=== PATIENT | female | born 1960 | race Two or more races ===

== ENCOUNTER 2016-09-08 07:15 | Inpatient (IN) | payer MEDICARE, MEDICAID ==
[2016-10-16 13:14] LABS: HEMATOCRIT 41.5 % (36.0-47.0); HEMOGLOBIN 13.1 g/dL (12.0-15.5); HGB HCT DIFFERENCE -2.2; MEAN CORPUSCULAR HEMOGLOBIN 25.7 pg (27.0-33.4); MEAN CORPUSCULAR HGB CONC 31.6 g/dL (32.0-36.0); MEAN CORPUSCULAR VOLUME 81 fl (80-97); RED BLOOD COUNT 5.11 10^6/uL (3.72-5.28); RED CELL DISTRIBUTION WIDTH 13.9 % (11.5-14.0); WHITE BLOOD COUNT 4.5 10^3/uL (4.0-10.5)
[2016-10-16 13:21] LABS: APPEARANCE,URINE CLEAR; BILIRUBIN,URINE NEGATIVE (NEGATIVE); GLUCOSE, URINE NEGATIVE (NEGATIVE); KETONES,URINE NEGATIVE (NEGATIVE); LEUKOCYTE ESTERASE,URINE NEGATIVE (NEGATIVE); NITRITE,URINE NEGATIVE (NEGATIVE); PROTEIN,URINE NEGATIVE (NEGATIVE); URINE SPECIFIC GRAVITY 1.008; UROBILINOGEN,URINE NEGATIVE mg/dL (<2.0)
[2016-10-16 13:43] LABS: ANION GAP 12 (5-19); BLOOD UREA NITROGEN 10 mg/dL (7-20); CALCIUM 9.6 mg/dL (8.4-10.2); CARBON DIOXIDE 30 mmol/L (22-30); CHLORIDE 102 mmol/L (98-107); CREATININE RESULT 0.62 mg/dL (0.52-1.25); GLUCOSE 76 mg/dL (75-110); POTASSIUM 3.9 mmol/L (3.6-5.0)
--- NOTE | 2016-10-16 18:02 | EKG REPORT ---
SEVERITY:- ABNORMAL ECG - SINUS RHYTHM CONSIDER LEFT VENTRICULAR HYPERTROPHY : Confirmed by: Tenzin Carbajal MD 16-Oct-2016 18:01:07
[2016-10-18] MEDS ORDERED: CEFAZOLIN SODIUM 1 GM in DEXTROSE 5%-WATER 50 ML IV PRN (05:00)
[2016-10-18] MEDS ORDERED: LIDOCAINE 0.5% INJ-PF (5 MG/ML) 50 ML SDV SUBCUT PRN (05:00)
[2016-10-18] MEDS ORDERED: LACTATED RINGERS 1000 ML IV PRN (05:00)
[2016-10-18] MEDS ORDERED: BUPIVACAINE INJ/PF LIPOSOME/PF 266 MG/20 ML SDV ONE (06:48)
[2016-10-18] MEDS ORDERED: FENTANYL CITRATE INJ/PF 250 MCG/5 ML AMPULE ONE (07:08)
[2016-10-18] MEDS ORDERED: MIDAZOLAM 2 MG/2 ML INJ ONE (07:08)
[2016-10-18] MEDS ORDERED: HYDROMORPHONE HCL INJ/PF 2 MG/ML AMPULE ONE (07:08)
[2016-10-18] MEDS ORDERED: ONDANSETRON HCL INJ/PF 4 MG/2 ML SDV ONE ×2 (07:09→14:57)
[2016-10-18] MEDS ORDERED: PROPOFOL INJ 200 MG/20 ML VIAL IV ONE (07:09)
[2016-10-18] MEDS ORDERED: DEXAMETHASONE SOD PHOSPHATE INJ 4 MG/1 ML VIAL ONE (07:09)
[2016-10-18] MEDS ORDERED: FAMOTIDINE INJ/PF 20 MG/2 ML SDV IV ONE (07:18)
[2016-10-18] MEDS ORDERED: SCOPOLAMINE HYDROBROMIDE 1.5 MG PATCH.TD72 ONE (07:18)
[2016-10-18] MEDS ORDERED: DIPHENHYDRAMINE HCL 50 MG/ML VIAL IV PRN (07:52)
[2016-10-18] MEDS ORDERED: PROMETHAZINE HCL INJ 25 MG/1 ML VIAL IV PRN (07:52)
[2016-10-18] MEDS ORDERED: MEPERIDINE HCL/PF INJ 25 MG/1 ML DISP.SYRIN IV PRN (07:52)
[2016-10-18] MEDS ORDERED: FENTANYL CITRATE INJ/PF 100 MCG/2 ML AMPUL IV PRN ×3 (07:52)
[2016-10-18] MEDS ORDERED: OXYCODONE-ACETAMINOPHEN 5-325 MG TABLET PO PRN (09:01)
[2016-10-18] MEDS ORDERED: MORPHINE SULFATE 10 MG/ML INJ IM PRN (09:02)
[2016-10-18] MEDS ORDERED: MORPHINE SULFATE 10 MG/ML INJ INJ PRN ×2 (09:02)
[2016-10-18] MEDS ORDERED: PROMETHAZINE HCL INJ 25 MG/1 ML VIAL IM PRN (09:03)
[2016-10-18] MEDS ORDERED: ACETAMINOPHEN 100 ML IV ONE (10:00)
[2016-10-18] MEDS ORDERED: PROPRANOLOL HCL 60 MG PO SCH (10:00)
[2016-10-18] MEDS ORDERED: KETOROLAC TROMETHAMINE INJ/PF 30 MG/1 ML SDV IV ONE (10:00)
[2016-10-18] MEDS ORDERED: PROPRANOLOL HCL 20 MG TABLET PO SCH (10:00)
[2016-10-18] MEDS ORDERED: ROCURONIUM BROMIDE INJ 50 MG/5 ML VIAL IV ONE (10:21)
[2016-10-18] MEDS ORDERED: NEOSTIGMINE METHYLSULFATE 10 MG/10 ML VIAL ONE (10:21)
[2016-10-18] MEDS ORDERED: GLYCOPYRROLATE INJ 0.4 MG/2 ML VIAL ONE (10:21)
[2016-10-18] MEDS ORDERED: LIDOCAINE 2% INJ-PF (20 MG/ML) 10 ML AMPUL ONE (10:21)
[2016-10-18] MEDS ORDERED: INFLUENZA ADLT QUAD (36MOS+) 2016-17 VAC 0.5 ML SYR IM PRN (10:40)
[2016-10-18] MEDS: CEFAZOLIN SODIUM 1 GM in DEXTROSE 5%-WATER 50 ML IV SCH ×2 (11:47→18:07)
[2016-10-18] MEDS ORDERED: IBUPROFEN 800 MG TABLET PO SCH (14:00)
[2016-10-18] MEDS ORDERED: ONDANSETRON HCL INJ/PF 4 MG/2 ML SDV IV PRN (15:06)
--- NOTE | 2016-10-18 15:06 | OPERATIVE REPORT E ---
Operative Report NAME: TAMEKA CLINE : 1960 AGE: 56Y DATE OF SURGERY: 10/18/2016 ROOM: 218 PREOPERATIVE DIAGNOSIS: 1. Uterine leiomyomas. 2. Dysmenorrhea. POSTOPERATIVE DIAGNOSES: 1. Uterine leiomyomas. 2. Dysmenorrhea. PROCEDURES: 1. Exploratory laparotomy. 2. Total abdominal hysterectomy. 3. Bilateral salpingo-oophorectomy. SURGEON: SIMEON FERNANDEZ M.D. COMPLICATIONS: None. ANESTHESIA: General endotracheal and EXPAREL postprocedure. ESTIMATED BLOOD LOSS: Less than 100 mL. INDICATIONS FOR PROCEDURE: The patient had failed outpatient management of pelvic pain, dysmenorrhea, and uterine leiomyoma. She desires definitive therapy. The usual risks of bleeding, infection, anesthesia, and damage to organs and tissues were discussed with the patient, with the daughter being the primary per diem interpreter during her preoperative phase. DESCRIPTION OF PROCEDURE: The patient was taken to the operating room and placed in the supine position modified after adequate anesthesia ascertained. Surgical time-out performed. EUA performed. Bladder drained under sterile technique. Through a midline incision in the subcutaneous fat and fascia the peritoneum was entered without difficulty and self-retaining retractor was placed. Abdominal contents were packed out of the pelvis. The uterus was __exteriorized____ and brought into the operative field. Normal appendix was visualized. The LigaSure Advance device was used to _cauterize ligaments and this was continued down to the level of the broad ligaments, which were cauterized as well. and cautery continued using the same device down the uterine vessels which were suture ligated and free tied with chromic catgut, continuing down to the vagina, corners held, and then closed with interrupted #1 chromic catgut x4. Good hemostasis was noted. Good closure of vagina was noted. Uterus / cervix handed off the operative field. Good hemostasis confirmed. Copious irrigation was performed. __Fascial double stranded PDS sutures. Skin approximated with skin jeana. At the completion of procedure, all sponge and needle counts were correct. To RR stable condition DICTATING PHYSICIAN: SIMEON FERNANDEZ M.D. [id number] Y#: [id number] ID: [id number] JOB#: [id number] ACCT: [id number] cc:SIMEON FERNANDEZ M.D. > [place]
[2016-10-18] MEDS: IBUPROFEN 800 MG TABLET PO SCH (18:06)
[2016-10-19] MEDS: IBUPROFEN 800 MG TABLET PO SCH (02:00)
[2016-10-19 06:51] LABS: HEMOGLOBIN 11.5 g/dL (12.0-15.5); HGB HCT DIFFERENCE -0.5; MEAN CORPUSCULAR HEMOGLOBIN 26.2 pg (27.0-33.4); MEAN CORPUSCULAR VOLUME 79 fl (80-97); RED CELL DISTRIBUTION WIDTH 13.8 % (11.5-14.0)
[2016-10-19 08:53] VITALS: BP 139/72
== END 2016-10-19 09:34 | disposition home or self-care (01) | DRG 743 ==
LOC: INOR 10-18 05:40 → EDSTATUS 10-18 07:15 → 2S 10-18 10:00
PROVIDERS: ADMIT Specialist; ATTEND Specialist
PROC: 0UTC0ZZ Resection of Cervix, Open Approach (ICD-10-PCS; 2016-10-18)
PROC: 0UT70ZZ Resection of Bilateral Fallopian Tubes, Open Approach (ICD-10-PCS; 2016-10-18)
PROC: 0UT90ZZ Resection of Uterus, Open Approach (ICD-10-PCS; principal; 2016-10-18 07:15)
PROC: 3E0234Z Introduction of Serum, Toxoid and Vaccine into Muscle, Percutaneous Approach (ICD-10-PCS; 2016-10-19)
DX: D25.9 Leiomyoma of uterus, unspecified (principal); N94.6 Dysmenorrhea, unspecified; R10.2 Pelvic and perineal pain; F32.9 Major depressive disorder, single episode, unspecified; F41.9 Anxiety disorder, unspecified; Z23 Encounter for immunization
CPT/HCPCS: 36415; 71020; 80048; 81001; 81025; 840; 85027; 86850; 86900; 86901; 88307; 90686; 93005; 93010; 94799; C9290; J0131; J0690; J1100; J1170; J1885; J2250; J2270; J2405; J2704; J3010; J3490; J7120; S0028